=== PATIENT | male | born 1995 | race Hispanic/Latino ===

== ENCOUNTER 2017-10-09 09:21 | Inpatient (IN) | payer OTHER ==
[~2017-10-09] VITALS: Ht 162.6 cm; Wt 63.5 kg
[2017-10-09] MEDS ORDERED: SODIUM CHLORIDE 0.9% 1000ML 1,000 ML IV STA (10:22)
[2017-10-09] MEDS ORDERED: CLINDAMYCIN PHOS 900MG/ D5W 50 50 ML IV STA (10:22)
[2017-10-09] MEDS ORDERED: HYDROCODONE/APAP 10MG-325MG TAB PO ONE (10:30)
--- NOTE | 2017-10-09 11:25 | Diagnostic Imaging Report ---
PROCEDURE:X-RAY RIGHT FOOT, COMPLETE COMPARISON:None. INDICATIONS:PAIN, SWELLING IN RIGHT FOOT FINDINGS: There are no fractures, dislocations, lytic or blastic lesions. The bones are well-mineralized. Soft tissue swelling of the dorsal foot. Mild deformity of the tip of the distal phalanx of the second toe. CONCLUSION: No acute fracture or dislocation of the right foot. Mild well corticated deformity of the tip of the distal phalanx of the second toe, less likely to represent erosion. Please correlate clinically. Dictated by: Napoleon Camp M.D. on 10/09/2017 at 11:34 Electronically approved by: Napoleon Camp M.D. on 10/09/2017 at 11:34
[2017-10-09 11:40] LABS: BASOPHILS % 0.2 % (0.0-1.0); EOSINOPHILS # (AUTO) 0.2 (0.0-0.4); EOSINOPHILS % 1.5 % (0.0-6.0); HEMATOCRIT 45.5 % (38.2-49.6); HEMOGLOBIN 15.3 g/dL (14.0-18.0); LYMPHOCYTES # (AUTO) 1.4 (1.0-3.2); LYMPHOCYTES % 12.5 % (18.0-39.1); MEAN CORPUSCULAR HEMOGLOBIN 29.2 pg (28-32); MEAN CORPUSCULAR HGB CONC 33.6 g/dL (31-35); MEAN CORPUSCULAR VOLUME 86.8 fL (81-99); MONOCYTES # (AUTO) 0.9 (0.2-0.8); MONOCYTES % 7.7 % (4.4-11.3); NEUTROPHILS # (AUTO) 8.8 (2.1-6.9); NEUTROPHILS % 77.7 % (38.7-80.0); PLATELET COUNT 367 x10e3/uL (140-360); RED BLOOD COUNT 5.24 x10e6/uL (4.3-5.7); RED CELL DISTRIBUTION WIDTH 11.7 % (11.7-14.4)
[2017-10-09 12:03] LABS: ALANINE AMINOTRANSFERASE 32 IU/L (0-55); ALBUMIN 3.5 g/dL (3.5-5.0); ALBUMIN/GLOBULIN RATIO 0.9 (0.8-2.0); ALKALINE PHOSPHATASE 65 IU/L (40-150); ANION GAP 12.5 mmol/L (8-16); BLOOD UREA NITROGEN 15 mg/dL (7-26); BUN/CREATININE RATIO 19 (6-25); CALCIUM 9.6 mg/dL (8.4-10.2); CARBON DIOXIDE 30 mmol/L (22-29); CHLORIDE 99 mmol/L (98-107); CREATININE, SERUM 0.81 mg/dL (0.72-1.25); EST GLOMERULAR FILTRATION RATE > 60 ML/MIN (60-); GLUCOSE 106 mg/dL (74-118); POTASSIUM 4.5 mmol/L (3.5-5.1); SODIUM 137 mmol/L (136-145)
[2017-10-09] MEDS ORDERED: MORPHINE SULFATE 2 MG/ML SYR IV PRN (13:00)
[2017-10-09] MEDS ORDERED: SODIUM CHLORIDE FLUSH 10 ML SYR INJ PRN (13:00)
[2017-10-09] MEDS: CLINDAMYCIN 600MG/D5W 50ML 50 ML IV SCH ×3 (13:00→20:40)
--- NOTE | 2017-10-09 19:34 | History and Physical ---
A 22-year-old gentleman who comes in with right foot pain. HISTORY OF PRESENT ILLNESS: Mr. Tavo Saravia was in his usual state of health until about 2 weeks prior to admission the patient noted to have some redness in the dorsum of his right foot and went to urgent care with gout and was given Solu-Medrol and some antibiotics and the patient did not get any better. He went back to urgent care and was started on some antibiotics, name unknown. Today, the patient's pain and lymphangitis got really worse and the patient comes in with increased swelling, increased erythema, increased tenderness and is admitted for cellulitis to the lower extremities. PAST MEDICAL HISTORY: Noncontributory. No signs of any infectious disease or diabetes. PAST SURGICAL HISTORY: Noncontributory. SOCIAL HISTORY: No ETOH, no IV drug abuse. He is not . REVIEW OF SYSTEMS: Negative for chest pain, no shortness of breath, no nausea or vomiting, no diarrhea, no constipation, no rectal bleeding. Positive for some fever. Positive for tenderness and inability to weight bear on the right foot. PHYSICAL EXAMINATION GENERAL: The patient is alert and oriented x3. VITAL SIGNS: Temperature 96.7, blood pressure 151/96, pulse 94. HEENT: Normocephalic, atraumatic. Pupils react to light and accommodation. CVS: S1 and S2 normal. Regular rate and rhythm. ABDOMEN: Nontender and nondistended. EXTREMITIES: Right lower extremity positive for erythema, increased swelling in the dorsum of the foot. There is lymphangitic spread all the way to the knee. Positive for tenderness and also positive for some brawny pitting edema. IMAGING: X-ray of the foot shows no acute fracture or dislocation of the right foot. Mild decorticated deformity of the tip of the distal phalanx of the 2nd toe, likely ____ erosion. LABORATORY DATA: White count 11.3, platelet count 367,000, neutrophil count 8.8. Chemistries: Sodium 137, potassium 4.4, lactic acid 8.2. Uric acid was not done. Liver enzymes were normal. ASSESSMENT AND PLAN: Cellulitis of the right lower extremity, lymphangitic spread. The patient is on clindamycin at this time. Will continue on that. Will start the patient on vancomycin. Infectious disease consult and also MRI of the right lower extremity to rule out any other pathology. Further recommendations depending on clinical course. Will continue to monitor the patient and also keep him antipyretic. The patient will also receive morphine sulfate as needed for pain control, and also will do a Doppler to rule out DVT. Job#: [id number]
[2017-10-09] MEDS: MORPHINE SULFATE 5 MG/ML VIAL IV PRN (23:16)
[2017-10-09 23:43] VITALS: BP 141/93
[2017-10-10] VITALS (7 sets, daily range): BP systolic 121–141; BP diastolic 69–93
[2017-10-10] MEDS: CLINDAMYCIN 600MG/D5W 50ML 50 ML IV SCH (03:17)
[2017-10-10 06:10] LABS: BASOPHILS % 0.2 % (0.0-1.0); EOSINOPHILS # (AUTO) 0.3 (0.0-0.4); EOSINOPHILS % 2.2 % (0.0-6.0); HEMATOCRIT 39.8 % (38.2-49.6); HEMOGLOBIN 13.7 g/dL (14.0-18.0); LYMPHOCYTES % 17.2 % (18.0-39.1); MEAN CORPUSCULAR HEMOGLOBIN 29.4 pg (28-32); MEAN CORPUSCULAR HGB CONC 34.4 g/dL (31-35); MEAN CORPUSCULAR VOLUME 85.4 fL (81-99); MONOCYTES # (AUTO) 1.2 (0.2-0.8); MONOCYTES % 10.2 % (4.4-11.3); NEUTROPHILS % 69.9 % (38.7-80.0); PLATELET COUNT 363 x10e3/uL (140-360); RED BLOOD COUNT 4.66 x10e6/uL (4.3-5.7); RED CELL DISTRIBUTION WIDTH 11.5 % (11.7-14.4)
[2017-10-10 06:50] LABS: ALANINE AMINOTRANSFERASE 23 IU/L (0-55); ALBUMIN 3.2 g/dL (3.5-5.0); ALBUMIN/GLOBULIN RATIO 0.9 (0.8-2.0); ALKALINE PHOSPHATASE 57 IU/L (40-150); ANION GAP 12.4 mmol/L (8-16); BLOOD UREA NITROGEN 12 mg/dL (7-26); BUN/CREATININE RATIO 15 (6-25); CARBON DIOXIDE 28 mmol/L (22-29); CHLORIDE 100 mmol/L (98-107); CREATININE, SERUM 0.79 mg/dL (0.72-1.25); EST GLOMERULAR FILTRATION RATE > 60 ML/MIN (60-); GLUCOSE 101 mg/dL (74-118); POTASSIUM 4.4 mmol/L (3.5-5.1); SODIUM 136 mmol/L (136-145)
[2017-10-10] MEDS: VANCOMYCIN 1GM/NS 250 ML 250 ML IV SCH ×2 (08:35→18:46)
--- NOTE | 2017-10-10 15:32 | Diagnostic Imaging Report ---
TECHNIQUE: Magnetic resonance imaging of the right ankle and foot was performed WITHOUT injected contrast. COMPARISON: None available. HISTORY: Soft tissue swelling, cellulitis FINDINGS: Soft tissue edema and swelling throughout the left lower extremity. Ill-defined soft tissue phlegmon/abscess overlying the dorsum of the forefoot at the level of the metatarsals. Discrete measurements limited due to lack of intravenous contrast. Bone marrow edema and T1 signal loss within the second metatarsal diaphysis. IMPRESSION: Osteomyelitis second metatarsal. Dorsal soft tissue phlegmon/abscess overlying the forefoot at the level of the metatarsals. Cellulitis/edema throughout the right lower extremity. Signed by: Dr. Renan Nguyen M.D. on 10/10/2017 3:28 PM
--- NOTE | 2017-10-10 17:12 | Consultation ---
DATE OF CONSULTATION: October 10, 2017 INFECTIOUS DISEASE CONSULTATION REASON FOR CONSULTATION: Osteomyelitis of the foot, abscess of the foot. HISTORY OF PRESENT ILLNESS: This patient, who is a very pleasant 22-year-old gentleman, denies any past medical history. Nine days ago he started to have redness and swelling in his foot. Started suddenly and slowly but progressively. The patient denies history of specific trauma. The patient was getting progressively worse. Now the foot is quite red and swollen. Infectious Disease was consulted. PAST MEDICAL HISTORY: He denies. PAST SURGICAL HISTORY: He denies. ALLERGIES: NKA. SOCIAL HISTORY: There is no smoking, drug abuse, alcohol use. FAMILY HISTORY: Is otherwise unremarkable. REVIEW OF SYSTEMS: HEENT: There is no headache, visual changes, hearing changes. GI: There is no nausea, no vomiting, no diarrhea. CARDIAC: There is no arrhythmia. NEURO: No seizure activity. SKIN: There is no other rash. JOINTS: No swelling or erythema. ALL OTHER SYSTEMS: Within normal limits. LABORATORY DATA: Reviewed. His MRI is showing osteomyelitis of the 2nd metatarsal as well as a phlegmon and abscess. His white count is 11.36, hemoglobin 13.7. His sodium 136, potassium 4.4. Liver enzymes within normal limits. PHYSICAL EXAMINATION: GENERAL: He is currently alert, oriented, does not seem to be in acute distress. VITALS: Stable. Currently afebrile. HEENT: He does not appear icteric. NECK: Supple. CHEST: Clear. HEART: S1/S2. No S3, no S4. No murmur. ABDOMEN: Soft. Bowel sounds present. No tenderness. EXTREMITIES: No edema. The right foot: There is erythema. There is edema. There is induration and tenderness. IMPRESSION: Right foot abscess, right foot osteomyelitis. Will put him on vancomycin and cefepime. Will consult farm mechanic for I\T\D and send culture and sensitivity. Will get a PICC line. Will get a sed rate, C-reactive protein. Discussed with Dr. Sahu, discussed with the patient. Job#: [id number]
[2017-10-10] MEDS ORDERED: SODIUM CHLORIDE 0.9% 100 ML 100 ML ONE (17:59)
[2017-10-10] MEDS: PIPER-TAZ 3.375 GM 50 ML IV SCH ×2 (18:05→23:55)
[2017-10-10] MEDS ORDERED: MIDAZOLAM HCL 2 MG/2 ML VIAL ONE (18:54)
[2017-10-10] MEDS ORDERED: FENTANYL CITRATE/PF 100MCG/2 ML INJ ONE (18:54)
--- NOTE | 2017-10-10 19:44 | Consultation ---
DATE OF CONSULTATION: October 10, 2017 HISTORY OF CHIEF COMPLAINT: Mr. Saravia is a most pleasant, 22-year-old gentleman with a painful right foot abscess. He states approximately 2 weeks ago he was noticing a redness, swelling and pain in his right foot. He went to the ER and was placed on Medrol Dose Rosales for gout. It continued to worsen and he ultimately carlos back and was placed on an antibiotic and the foot continued to worsen, and he presented to the ER and was admitted with abscess, cellulitis and MRI has ultimately concluded osteomyelitis of the 2nd metatarsal of the right foot. PAST MEDICAL HISTORY: Otherwise noncontributory. He denies history of diabetes. No problems of the heart, kidneys or lungs. SURGICAL HISTORY: He has never had surgery. ALLERGIES: NO KNOWN DRUG ALLERGIES. SOCIAL HISTORY: The patient denies smoking, alcohol or drug abuse. FAMILY HISTORY: Otherwise unremarkable as well. REVIEW OF SYSTEMS: HEENT: Clear with no visual changes, no headaches. CARDIAC: No arrhythmias. NEUROLOGIC: No seizure activity. SKIN: No rash other than the right foot which is swollen, red and hot. LABORATORY AND TESTING DATA AVAILABLE: MRI showing osteomyelitis of 2nd metatarsal with phlegmon and abscess. White count is 11.36 with a hemoglobin of 13.7. PHYSICAL EXAMINATION: VITAL SIGNS: The patient is currently afebrile. GENERAL: He is alert and oriented and although his right foot is painful he does not appear to be in acute distress. HEENT: Appears to be within normal limits. NECK: Supple. CHEST: Clear. HEART: No murmur. ABDOMEN: Soft with bowel sounds present. No tenderness. EXTREMITIES: There is no edema on the left foot. The right foot has significant edema, nonpitting, significantly swollen with intense redness and erythema. There is induration and extreme tenderness. The patient has no drainage, no portal of entry and no open wounds, either dorsally or plantarly. There is nothing interdigitally as well. IMPRESSION: Right foot abscess with osteomyelitis as per MRI. He is currently on vancomycin and cefepime. The patient will need to undergo an I\T\D with deep wound culture and sensitivity of the right foot. PICC line will be started later this evening. Patient is fully aware of the planned procedure and has agreed to accept all risks inherent to the procedure and understands the necessity thereof. The patient will be scheduled at the 1st available OR time tomorrow. Job#: [id number]
--- NOTE | 2017-10-10 23:23 | Diagnostic Imaging Report ---
CHEST XRAY LINE PLACEMENT, 10/10/2017 10:44 PM Technique: CHEST XRAY LINE PLACEMENT Comparison: None available. Clinical history: PICC line confirmation Findings: Unremarkable portable appearance of the heart, mediastinum, lungs and pleural spaces. Impression: 1. Lines/Tubes: Right PICC line placement projecting over the SVC. 2. No acute abnormality. Signed by: Dr Jimena Laureano MD on 10/10/2017 11:19 PM
[2017-10-11] VITALS (7 sets, daily range): BP systolic 121–133; BP diastolic 69–91
[2017-10-11] MEDS: PIPER-TAZ 3.375 GM 50 ML IV SCH ×4 (05:46→23:46)
[2017-10-11 06:42] LABS: BASOPHILS % 0.4 % (0.0-1.0); EOSINOPHILS # (AUTO) 0.2 (0.0-0.4); EOSINOPHILS % 2.6 % (0.0-6.0); HEMATOCRIT 39.7 % (38.2-49.6); HEMOGLOBIN 13.7 g/dL (14.0-18.0); LYMPHOCYTES # (AUTO) 1.7 (1.0-3.2); LYMPHOCYTES % 21.1 % (18.0-39.1); MEAN CORPUSCULAR HEMOGLOBIN 29.6 pg (28-32); MEAN CORPUSCULAR HGB CONC 34.5 g/dL (31-35); MEAN CORPUSCULAR VOLUME 85.7 fL (81-99); MONOCYTES # (AUTO) 0.9 (0.2-0.8); MONOCYTES % 10.5 % (4.4-11.3); NEUTROPHILS # (AUTO) 5.3 (2.1-6.9); NEUTROPHILS % 64.9 % (38.7-80.0); PLATELET COUNT 353 x10e3/uL (140-360); RED BLOOD COUNT 4.63 x10e6/uL (4.3-5.7); RED CELL DISTRIBUTION WIDTH 11.6 % (11.7-14.4)
[2017-10-11 06:46] LABS: INR 0.98; PROTHROMBIN TIME 13.5 seconds (11.9-14.5)
[2017-10-11 07:00] LABS: ALANINE AMINOTRANSFERASE 22 IU/L (0-55); ALBUMIN/GLOBULIN RATIO 0.8 (0.8-2.0); ALKALINE PHOSPHATASE 54 IU/L (40-150); ANION GAP 13.2 mmol/L (8-16); BLOOD UREA NITROGEN 12 mg/dL (7-26); BUN/CREATININE RATIO 16 (6-25); CALCIUM 9.2 mg/dL (8.4-10.2); CARBON DIOXIDE 26 mmol/L (22-29); CHLORIDE 103 mmol/L (98-107); CREATININE, SERUM 0.73 mg/dL (0.72-1.25); EST GLOMERULAR FILTRATION RATE > 60 ML/MIN (60-); GLUCOSE 107 mg/dL (74-118); POTASSIUM 4.2 mmol/L (3.5-5.1); SODIUM 138 mmol/L (136-145)
[2017-10-11] MEDS: VANCOMYCIN 1GM/NS 250 ML 250 ML IV SCH ×2 (07:03→20:35)
[2017-10-11] MEDS ORDERED: BUPIVACAINE HCL 0.5% INJ 30 ML VIAL INJ ONE (12:50)
[2017-10-11] MEDS ORDERED: BACITRACIN 50,000 UNIT VIAL ONE (12:51)
[2017-10-11] MEDS ORDERED: FENTANYL CITRATE/PF 100MCG/2 ML INJ ONE (14:27)
--- NOTE | 2017-10-11 14:53 | Operative Report ---
DATE OF PROCEDURE: PREOPERATIVE DIAGNOSIS: Abscess and cellulitis with osteomyelitis, 2nd metatarsal of the right foot. POSTOPERATIVE DIAGNOSIS: Abscess and cellulitis with osteomyelitis, 2nd metatarsal of the right foot. TITLE OF OPERATION: Incision and drainage with deep wound culture and sensitivity of the right foot. ANESTHESIA: General endotracheal. HEMOSTASIS: None used. PROCEDURE IN DETAIL: The patient was taken to the operating room in a mildly sedated state and placed upon the operating table in the supine position. Following induction of general anesthetic, the right lower extremity was elevated, and prepped and draped in the usual aseptic manner utilizing Betadine prep, and placed upon the operating table prior to performing the following procedure. PROCEDURE #1: I and D of the right foot. A linear longitudinal incision was made overlying the central aspect and the largest dome of the abscess of the dorsal aspect of the right foot. The incision was deepened via sharp and blunt dissection at the level of the dorsal capsular structure. Care was taken to identify and retract all vital structures encountered. The incision was deepened, and a significant amount of purulent exudate, as well as phlegmon were extruded from the wound. This area was cultured. Aerobic, anaerobic and gram stain. The deep wound was then irrigated with copious amounts of Bacitracin solution utilizing a Pulsavac system. Each individual pocket between the intermetatarsal spaces, as well as extending over to the distal aspect of the 2nd, 3rd and 1st metatarsals was performed utilizing a blunt probe and spreading technique with a hemostat. This having been accomplished, the area was once again irrigated and pulse lavaged with antibiotics, and packed open with 0.25-inch Iodoform gauze. Minimal amount of bleeding approximately 20-30 mL along with 30 mL of purulent exudate was extruded from the very swollen right foot with the appropriate packing and continued IV antibiotics. To continue, the right foot will undergo dressing changes on a regular basis while in-house until such time as the wound closes secondarily. He will need IV antibiotics for 6-8 weeks due to osteomyelitis of the 2nd metatarsal as diagnosed by the MRI of the right foot. Job#: [id number]
[2017-10-11] MEDS: ONDANSETRON HCL INJ 2 MG/ML VIAL IV PRN (17:30)
[2017-10-11] MEDS: MORPHINE SULFATE 5 MG/ML VIAL IV PRN (17:30)
[2017-10-11] MEDS ORDERED: SEVOFLURANE INHAL SOLN 250 ML PEN BTL ONE (18:27)
[2017-10-11] MEDS ORDERED: PROPOFOL IV EMULSION 10 MG/ML 20 ML VIAL ONE (18:27)
[2017-10-11] MEDS ORDERED: LIDOCAINE HCL 2% LOCAL INJ 5 ML SDV VIAL INJ ONE (18:27)
[2017-10-11] MEDS ORDERED: KETOROLAC TROMETHAMINE 30 MG/ML VIAL ONE (18:27)
[2017-10-11] MEDS ORDERED: ONDANSETRON HCL INJ 2 MG/ML VIAL ONE (18:27)
[2017-10-11] MEDS ORDERED: DEXAMETHASONE SOD PHOS INJ 4 MG/ML VIAL ONE (18:27)
[2017-10-12] VITALS: BP 119/71
[2017-10-12] MEDS: ONDANSETRON HCL INJ 2 MG/ML VIAL IV PRN ×2 (00:31→09:45)
[2017-10-12] MEDS: MORPHINE SULFATE 5 MG/ML VIAL IV PRN ×2 (00:31→09:45)
[2017-10-12 04:00] VITALS: BP 118/58
[2017-10-12] MEDS: PIPER-TAZ 3.375 GM 50 ML IV SCH ×3 (06:15→17:57)
[2017-10-12 08:32] VITALS: BP 112/57
[2017-10-12] MEDS: VANCOMYCIN 1GM/NS 250 ML 250 ML IV SCH (09:00)
--- NOTE | 2017-10-12 11:15 | Progress Note ---
DATE: October 12, 2017 PODIATRY PROGRESS NOTE, POSTOPERATIVE DAY #1 Patient is seen today at bedside in no distress, complaining of no pain. His right foot is showing moderate drainage through the dressing on the dorsal aspect of the right foot. Sterile dressing change with irrigation of the wound on the right foot yielded an approximate 5-cm wound packed open with iodoform gauze from yesterday's procedure. The packing was removed and replaced gently and lightly with a light saline wet-to-dry dressing applied over that packing in the right foot. The foot is much better today than it was yesterday preop. There is a decrease in edema, redness and swelling all in the right foot. Labs today show a decrease in the white count from 11.38 on admission to 8.20 on rounds today. The patient tolerated the procedure well and is showing moderate improvement at this point. He does have osteomyelitis. Will need long-term IV antibiotics as per Dr. Eagle. His central line is in place and the right foot redressed today sterilely. He is okay to begin local wound care with daily dressing changes, lightly packing with iodoform wet-to-dry. Return to see me outpatient in 1 week. He can be discharged from the hospital when the medical doctor and other consultants agree to begin IV antibiotics on an outpatient basis either at home or infusion suite. Job#: [id number]
[2017-10-12 13:41] VITALS: BP 124/76
[2017-10-12 18:52] VITALS: BP 116/60
[2017-10-12] MEDS ORDERED: VANCOMYCIN 1GM/NS 250 ML 250 ML IV SCH (20:00)
[2017-10-12] MEDS: VANCOMYCIN HCL 1.5 GM in SODIUM CHLORIDE 0.9% 250ML 300 ML IV SCH (20:40)
[2017-10-12] MEDS ORDERED: MORPHINE SULFATE 4 MG/ML SYR IV PRN (22:00)
[2017-10-12 22:18] VITALS: BP 122/79
[2017-10-13] VITALS: BP 138/88
[2017-10-13] MEDS: PIPER-TAZ 3.375 GM 50 ML IV SCH ×2 (00:50→05:57)
[2017-10-13 04:00] VITALS: BP 117/66
[2017-10-13] MEDS ORDERED: TYLENOL WITH C1 EACH PO (06:23)
[2017-10-13 08:09] VITALS: BP 128/74
[2017-10-13] MEDS: VANCOMYCIN HCL 1.5 GM in SODIUM CHLORIDE 0.9% 250ML 300 ML IV SCH (08:47)
[2017-10-13] MEDS ORDERED: ACETAMINOPHEN/CODEINE 300MG - 30MG TAB PO ONE (10:15)
== END 2017-10-13 10:17 | disposition home health service (06) | DRG 540 ==
LOC: ER 09:21 → ERHOLD 19:37 → IMCU 22:28 → OBSVTOIN 10-10 11:43 → MED/SURG 10-10 14:58
PROVIDERS: ADMIT Family Medicine; ATTEND Family Medicine
PROC: 02HV33Z Insertion of Infusion Device into Superior Vena Cava, Percutaneous Approach (ICD-10-PCS; 2017-10-10)
PROC: 0J9Q00Z Drainage of Right Foot Subcutaneous Tissue and Fascia with Drainage Device, Open Approach (ICD-10-PCS; principal; 2017-10-11 10:00)
DX: M86.9 Osteomyelitis, unspecified (principal); L02.611 Cutaneous abscess of right foot; B95.5 Unspecified streptococcus as the cause of diseases classified elsewhere; B95.61 Methicillin susceptible Staphylococcus aureus infection as the cause of diseases classified elsewhere
CPT/HCPCS: 36415; 36569; 71010; 80053; 80202; 83605; 85025; 85610; 85651; 86140; 87040; 87071; 87075; 87186; 87205; 93970; 99284; G0378; J1100; J1885; J2001; J2250; J2270; J2405; J2543; J3370; J7030; J7050